=== PATIENT | female | born 1955 | race Caucasian/White ===

== ENCOUNTER 2017-11-08 20:03 | Emergency (ER) | payer BC ==
[2017-11-08 20:10] VITALS: BP 123/66
--- NOTE | 2017-11-08 20:14 | ER Report ---
History and Physical Time Seen By MD: 20:13 HPI/ROS CHIEF COMPLAINT: Laceration HISTORY OF PRESENT ILLNESS: This is a 62-year-old female who presents to the emergency department for a laceration. Patient states that she was opening a bag with her kitchen knife, she slipped and lacerated her right index finger through the pad, approximately 40 minutes prior to arrival. Patient applied pressure and continued bleed subsequently she came to the emergency department for further evaluation. Patient has no other complaints. No chest pain or shortness of breath. Patient has good flexion and extension of the finger. CMS intact distal to the injury. REVIEW OF SYSTEMS: Respiratory: No cough, no dyspnea. Cardiovascular: No chest pain, no palpitations. Gastrointestinal: No vomiting, no abdominal pain. Musculoskeletal: No back pain. Integument: As above. 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 Reviewed Nurses Notes: Yes Constitutional Vital Sign - Last 24 Hours 11/08/17 20:10 Temp 97.7 Pulse 71 Resp 12 B/P (MAP) 123/66 Pulse Ox 94 O2 Delivery Room Air Physical Exam General Appearance: The patient is alert, has no immediate need for airway protection and no current signs of toxicity. Eyes: Pupils equal and round no injection. Respiratory: Chest is non tender, lungs are clear to auscultation. Cardiac: regular rate and rhythm. Gastrointestinal: Abdomen is soft and non tender, no masses, bowel sounds normal. Musculoskeletal: Neck: Neck is supple and non tender. Extremities have full range of motion and are non tender. Skin: A one 1cm laceration to the distal index finger through the pad. Moderate amount of bleeding, which is controlled with pressure. Flexion and extension of the distal finger intact. No fingernail involvement. DIFFERENTIAL DIAGNOSIS: After history and physical exam differential diagnosis was considered for laceration. Medical Decision Making ED Course/Re-evaluation ED Course The patient was admitted to room. A history and physical were obtained. Differential diagnoses were considered. The wound was anesthetized and sutured as noted below. Patient tolerated well. The patient was placed on Keflex. Patient was instructed follow-up with her primary care provider, urgent care or return to the ER in 7 days to have the sutures removed. The patient was instructed to monitor for signs of infection. The patient expressed understanding. Patient had no other questions or concerns at this time was discharged home. Bacitracin and tube gauze were applied to the finger. Procedure: Laceration repair. Verbal consent was obtained from the patient. The 1 cm laceration on the left distal index finger, through the pad was anesthetized in the usual fashion. The wound was scrubbed, draped and explored to its base with a gloved finger. There were no deep structures involved. No tendon injury was identified. The wound was repaired with 3, 5-0 Ethilon simple interrupted sutures. The wound repair was simple. The procedure was performed by myself. Decision to Disposition Date: Nov 08, 2017 Decision to Disposition Time: 21:06 Depart Departure Latest Vital Signs Vital Signs Date Time Temp Pulse Resp B/P (MAP) Pulse Ox O2 Delivery O2 Flow Rate FiO2 11/08/17 20:10 97.7 71 12 123/66 94 Room Air Impression: Primary Impression: Laceration of right index finger Condition: Improved Disposition: HOME OR SELF-CARE New Scripts Cephalexin 500 Mg Tab (KEFLEX 500 MG TAB) 500 Mg Tablet 500 MG PO Q6H, #20 TAB 0 Refills Prov: ASIA TOWNSEND-MIMA 11/08/17 Patient Instructions: Acute Wound Care (ED), Finger Laceration (ED) Additional Instructions: Keep wound dry for 48 hours. Follow up with your primary care provider, urgent care or return to the ED to have the the sutures removed in the next 7 days. Monitor for signs of infection; redness, swelling, heat, discharge, increasing pain or red streaking. Take Tylenol or Ibuprofen as needed for pain. Return to the ER with any concerns. You may change dressing as needed. 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
[2017-11-08] MEDS ORDERED: DIPHTH/TETANUS/ACEL. PERTUSSIS IM ONLY ONE (20:25)
[2017-11-08] MEDS ORDERED: CEPH500T7 PO (21:12)
== END 2017-11-08 21:28 | disposition home or self-care (01) ==
LOC: ER 20:22
DX: S61.210A Laceration without foreign body of right index finger without damage to nail, initial encounter (principal); W26.0XXA Contact with knife, initial encounter
CPT/HCPCS: 90471; 90715; 99283